=== PATIENT | male | born 2000 | race Caucasian/White ===

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

== ENCOUNTER 2019-10-13 03:12 | Emergency (ER) | payer SELFPAY ==
[~2019-10-13] VITALS: Ht 175.3 cm; Wt 61.4 kg
[~2019-10-13 03:12] MED LIST changes: +PULMICORT90 MCG/Act IH; +SINGULAIR 110 MG/TAB PO
[2019-10-13 03:14] VITALS: TEMP 97.8
[2019-10-13] MEDS ORDERED: PREDNISONE20 MG PO (03:24)
[2019-10-13 05:02] VITALS: BP 127/86; PULSE 105
== END 2019-10-13 05:02 | disposition home or self-care (01) ==
LOC: COL.ER 03:12
DX: J45.901 Unspecified asthma with (acute) exacerbation (principal)
CPT/HCPCS: J7512

== ENCOUNTER 2019-10-21 04:53 | Emergency (ER) | payer SELFPAY ==
[~2019-10-21] VITALS: Ht 177.8 cm; Wt 61.4 kg
[2019-10-21 04:59] VITALS: BP 127/73; TEMP 97.4
[2019-10-21] MEDS ORDERED: PROVENTIL0.09 MG/A1 IH (05:14)
[2019-10-21 05:50] VITALS: PULSE 105
== END 2019-10-21 05:50 | disposition home or self-care (01) ==
LOC: COL.ER 04:53
DX: J45.901 Unspecified asthma with (acute) exacerbation (principal)

== ENCOUNTER 2019-11-03 02:16 | Emergency (ER) | payer SELFPAY ==
[~2019-11-03] VITALS: Ht 177.8 cm; Wt 61.4 kg
[~2019-11-03 02:16] MED LIST changes: +PROVENTIL0.09 MG/A1 IH
[2019-11-03 02:22] VITALS: BP 130/73; TEMP 97.8
[2019-11-03 03:07] VITALS: PULSE 91
== END 2019-11-03 03:07 | disposition home or self-care (01) ==
LOC: COL.ER 02:16
DX: J45.909 Unspecified asthma, uncomplicated (principal); F41.9 Anxiety disorder, unspecified

== ENCOUNTER 2019-11-10 09:51 | Emergency (ER) | payer SELFPAY ==
[~2019-11-10] VITALS: Ht 177.8 cm; Wt 60.9 kg
[2019-11-10 10:01] VITALS: TEMP 98.1
[2019-11-10] MEDS ORDERED: PROAIR HFA0.09 MG/AC IH (10:23)
[2019-11-10] MEDS ORDERED: PREDNISONE20 MG PO (11:22)
[2019-11-10 11:33] VITALS: BP 115/79; PULSE 101
== END 2019-11-10 11:34 | disposition home or self-care (01) ==
LOC: COL.ER 09:51
DX: J45.901 Unspecified asthma with (acute) exacerbation (principal)